=== PATIENT | male | born 2000 | race Caucasian/White ===

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

== ENCOUNTER 2024-10-17 11:55 | Emergency (ER) | payer OTHER ==
[~2024-10-17] VITALS: Ht 165.1 cm; Wt 59.0 kg
[2024-10-17 13:50] VITALS: BP 117/72; O2SAT 98
[2024-10-17] MEDS ORDERED: PHENOL 177 ML BOTTLE MM STA (14:31)
[2024-10-17] MEDS ORDERED: KETOROLAC TROMETHAMINE 30 MG VIAL IM STA (14:32)
[2024-10-17] MEDS ORDERED: 0.9 % SODIUM CHLORIDE 1,000 ML IV SCH (14:45)
[2024-10-17] MEDS ORDERED: KETOROLAC TROMETHAMINE 30 MG VIAL ONE (15:11)
[2024-10-17 16:03] LABS: COVID-19 AG NEGATIVE (NEGATIVE)
[2024-10-17 16:09] LABS: ALT/SGPT 18.0 U/L (12-78); AST/SGOT 15.0 U/L (15-37); BILIRUBIN TOTAL 0.84 mg/dL (0.3-1.2); BUN CREA RATIO 14.0 (7.0-25.0); CREATININE SERUM 1.03 mg/dL (0.70-1.30); GFR 90.3; GLOBULINA 4.4 G/DL (2.4-3.5); GLUCOSE FASTING 81.0 mg/dL (65-100); OSMOLALITY SERUM 273.0 MOSM/KG (275-295)
[2024-10-17 17:24] LABS: BASO % 0.3 % (0.1-1.2); EOS # 0.03 (0.04-0.54); EOS % 0.4 % (0.7-7.0); LYMPH # 1.26 (1.18-3.74); LYMPH % 18.7 % (19.3-53.1); MEAN PLATELET VOLUME 9.20 fl (9.4-12.4); MONO # 0.83 (0.24-0.82); NEUT # 4.58 (1.56-6.13); NEUT % 68.0 % (34.0-71.1); RED CELL DISTRIBUTION WIDTH 12.1 % (11.6-14.4)
[2024-10-17 17:31] LABS: MONO % 12.3 % (4.7-12.5)
[2024-10-17 17:54] LABS: NEUTROPHILS MAN 70.0 %
[2024-10-17 17:55] LABS: EOSINOPHIL MAN 1.0 %; LYMPHOCYTE MAN 20.0 %; MONOCYTE MAN 9.0 %
== END 2024-10-17 18:05 | disposition home or self-care (01) ==
LOC: ER 11:55
PROVIDERS: General Practice
DX: J02.9 Acute pharyngitis, unspecified (principal); Z20.822 Contact with and (suspected) exposure to COVID-19